=== PATIENT | female | born 1950 | race Caucasian/White ===

== ENCOUNTER 2021-05-14 07:31 | Emergency (ER) | payer OTHER ==
[2021-05-14 07:41] VITALS: BP 180/79; PULSE 98; RESP 18; TEMP 98
--- NOTE | 2021-05-14 08:01 | ED ---
General Adult HPI - General Chief complaint: Extremity Injury, Lower Stated complaint: IHS-foot injury Time Seen by Provider: 05/14/21 07:43 Source: patient Mode of arrival: wheelchair Limitations: no limitations - History of Present Illness Initial comments: 70-year-old female presents to the emergency room for left foot and ankle pain. Patient states she was standing on a chair to reach a monitor. The chair move and she fell off onto the left foot and ankle. States it is painful to walk on. States it is swollen. Patient did not hit her head. She did not sustain any other injuries. Patient has no other complaints at this time including shortness of breath, chest pain, abdominal pain, nausea or vomiting, headache, or visual changes. - Related Data Allergies Allergy/AdvReac Type Severity Reaction Status Date / Time Sulfa (Sulfonamide Allergy Rash/Hives Verified 05/14/21 07:38 Antibiotics) Review of Systems ROS Statement: Those systems with pertinent positive or pertinent negative responses have been documented in the HPI. ROS Other: All systems not noted in ROS Statement are negative. Past Medical History Past Medical History: No Reported History History of Any Multi-Drug Resistant Organisms: None Reported Past Surgical History: No Surgical Hx Reported Past Psychological History: No Psychological Hx Reported Smoking Status: Current every day smoker Past Alcohol Use History: None Reported Past Drug Use History: None Reported General Exam Limitations: no limitations General appearance: alert, in no apparent distress Head exam: Present: atraumatic Eye exam: Present: normal appearance, PERRL, EOMI. Absent: scleral icterus, conjunctival injection ENT exam: Present: normal exam, mucous membranes moist Neck exam: Present: normal inspection, full ROM. Absent: tenderness Respiratory exam: Present: normal lung sounds bilaterally. Absent: respiratory distress, wheezes Cardiovascular Exam: Present: regular rate, normal rhythm, normal heart sounds Extremities exam: Present: tenderness (Tenderness to the lateral aspect of the left foot as well as the lateral malleolus), normal capillary refill (Capillary refill less than 2 seconds, DP pulse 2+), joint swelling (Mild edema of the lateral left foot), other (Sensation intact left lower extremity). Absent: full ROM (Pain with inversion of the left ankle and foot) Neurological exam: Present: alert Course Vital Signs 05/14/21 07:39 Temperature 98 F Pulse Rate 98 Respiratory 18 Rate Blood Pressure 180/79 O2 Sat by Pulse 98 Oximetry Medical Decision Making - Medical Decision Making Patient has a [place] fracture noted of the left foot. Disposition Clinical Impression: [place] fracture Disposition: HOME SELF-CARE Condition: Good Instructions (If sedation given, give patient instructions): Foot Fracture in Adults (ED) Additional Instructions: Please take Motrin and Tylenol for pain. Rest ice and elevate the foot. Use crutches and remain nonweightbearing. Follow up with orthopedics by calling today for the emergency room for any worsening symptoms. Is patient prescribed a controlled substance at d/c from ED?: No Referrals: Gordon Frank DO [Doctor of Osteopathic Medicine] - 1-2 days Time of Disposition: 09:05
--- NOTE | 2021-05-14 08:32 | XR ---
EXAMINATION TYPE: XR ankle complete LT, XR foot complete LT DATE OF EXAM: 05/14/2021 CLINICAL HISTORY: Pain after fall injury this morning TECHNIQUE: Frontal, lateral and oblique images of the left ankle and foot are obtained. COMPARISON: None. FINDINGS: Focal moderate soft tissue swelling over the lateral malleolus. There is no acute fracture /dislocation evident in the left ankle. The ankle mortise appears within normal limits. There is is acute nondisplaced transverse fracture through base of fifth metatarsal with horizontal l inear lucency. The joint spaces in the left foot are preserved. Incidental small superior and inferi or calcaneal spurs. Overlying soft tissue is unremarkable. IMPRESSION: There is acute nondisplaced transverse fracture base of fifth metatarsal. (Wellington type fr acture)
== END 2021-05-14 09:38 | disposition home or self-care (01) ==
LOC: EC 07:31
DX: S92.355A Nondisplaced fracture of fifth metatarsal bone, left foot, initial encounter for closed fracture (principal); F17.200 Nicotine dependence, unspecified, uncomplicated; Z88.2 Allergy status to sulfonamides; W07.XXXA Fall from chair, initial encounter
CPT/HCPCS: 99283